=== PATIENT | male | born 1945 | race Caucasian/White ===

== ENCOUNTER 2020-07-07 12:11 | Emergency (ER) | payer MEDICARE ==
[~2020-07-07] VITALS: Ht 167.6 cm; Wt 67.1 kg
[2020-07-07] MEDS ORDERED: SODIUM CHLORIDE 0.9% 1000ML 1,000 ML IV STA (12:26)
[2020-07-07] MEDS ORDERED: SODIUM CHLORIDE 0.9% 1000ML 1,000 ML ONE (12:38)
[2020-07-07 12:53] LABS: BASOPHILS % 0.5 % (0.0-1.0); EOSINOPHILS # (AUTO) 0.1 (0.0-0.4); EOSINOPHILS % 0.8 % (0.0-6.0); HEMATOCRIT 45.9 % (38.2-49.6); HEMOGLOBIN 15.1 g/dL (14.0-18.0); LYMPHOCYTES # (AUTO) 2.5 (1.0-3.2); LYMPHOCYTES % 28.2 % (18.0-39.1); MEAN CORPUSCULAR HEMOGLOBIN 28.2 pg (28-32); MEAN CORPUSCULAR HGB CONC 32.9 g/dL (31-35); MEAN CORPUSCULAR VOLUME 85.8 fL (81-99); MONOCYTES # (AUTO) 0.9 (0.2-0.8); MONOCYTES % 10.1 % (4.4-11.3); NEUTROPHILS # (AUTO) 5.3 (2.1-6.9); NEUTROPHILS % 59.8 % (38.7-80.0); PLATELET COUNT 225 x10e3/uL (140-360); RED BLOOD COUNT 5.35 x10e6/uL (4.3-5.7); RED CELL DISTRIBUTION WIDTH 13.1 % (11.7-14.4)
[2020-07-07 13:03] LABS: INR 0.87; PROTHROMBIN TIME 12.3 seconds (11.9-14.5)
[2020-07-07 13:04] LABS: PARTIAL THROMBOPLASTIN TIME 27.2 seconds (23.8-35.5)
[2020-07-07 13:13] LABS: ALANINE AMINOTRANSFERASE 20 IU/L (0-55); ALBUMIN 3.7 g/dL (3.5-5.0); ALBUMIN/GLOBULIN RATIO 1.1 (0.8-2.0); ALKALINE PHOSPHATASE 103 IU/L (40-150); ANION GAP 15.3 mmol/L (8-16); BLOOD UREA NITROGEN 12 mg/dL (7-26); BUN/CREATININE RATIO 10 (6-25); CARBON DIOXIDE 20 mmol/L (22-29); CHLORIDE 106 mmol/L (98-107); CREATININE, SERUM 1.17 mg/dL (0.72-1.25); EST GLOMERULAR FILTRATION RATE > 60 ML/MIN (60-); GLUCOSE 103 mg/dL (74-118); POTASSIUM 4.3 mmol/L (3.5-5.1); SODIUM 137 mmol/L (136-145)
[2020-07-07] MEDS ORDERED: IOPAMIDOL 370 MG/ML 200 ML INFUS..BTL INJ ONE (13:22)
[2020-07-07] MEDS ORDERED: SODIUM CHLORIDE 0.9% 250ML 250 ML ONE (13:22)
[2020-07-07 14:30] LABS: BILIRUBIN,URINE NEGATIVE (NEGATIVE); COLOR,URINE YELLOW (YELLOW); KETONES,URINE NEGATIVE (NEGATIVE); LEUKOCYTE ESTERASE ,URINE NEGATIVE (NEGATIVE); NITRITE,URINE NEGATIVE (NEGATIVE); PROTEIN,URINE DIPSTICK NEGATIVE (NEGATIVE); URINE UROBILINOGEN 0.2 mg/dL (0.2 - 1)
[2020-07-07 14:31] LABS: CLARITY,URINE HAZY (CLEAR)
[2020-07-07 14:46] LABS: BACTERIA,URINE MODERATE /HPF; EPITHELIAL CELLS,URINE FEW /LPF; RBC,URINE >50 /HPF (0-5); WBC,URINE (MAN) 0-5 /HPF (0-5)
[2020-07-07 14:47] LABS: MUCUS,URINE FEW (RARE)
--- NOTE | 2020-07-07 14:58 | Diagnostic Imaging Report ---
EXAM: CT Abdomen and Pelvis WITHOUT and WITH contrast INDICATION: Gross hematuria. Flank pain. COMPARISON: None. TECHNIQUE: Abdomen and pelvis were scanned utilizing a multidetector helical scanner from the lung base to the pubic symphysis before and after administration of IV contrast. Coronal and sagittal reformations were obtained. Hematuria (CT Urogram) protocol was performed. Scan was performed pre- in supine position and nephrogenic/excretory phase with a 10 minute split bolus in prone position. IV CONTRAST: 150 mL Isovue-370 ORAL CONTRAST: Water COMPLICATIONS: None RADIATION DOSE: Total DLP: 571.51 mGy*cm Estimated effective dose: (DLP x 0.015 x size factor) mSv CTDIvol has been reviewed. It is below the limits set by the Radiation Protocol Committee (RPC). FINDINGS: LINES and TUBES: None. LOWER THORAX: Bibasilar calcified pleural plaques. Calcified granuloma in the right lung base posteriorly. 2 mm posterior right base nodule on image 14 series 3. HEPATOBILIARY: No focal hepatic lesions. No biliary ductal dilation. GALLBLADDER: No radio-opaque stones or sludge. No wall thickening. SPLEEN: No splenomegaly. PANCREAS: No focal masses or ductal dilatation. ADRENALS: Mild diffuse thickening of the adrenal glands bilaterally may reflect mild hyperplasia. KIDNEYS/URETERS: Kidneys: Normal appearance bilaterally. No hydronephrosis or perinephric stranding. Cyst: None. Mass: There are several bilateral small renal cysts, the largest in the posterior interpolar region of the left kidney measuring 1.5 cm; some demonstrate above than water attenuation, suggesting mild complexity. Stones: 6.5 mm calculus in the upper pole of the right kidney on image 55. Upper collecting systems: No irregularities or filling defects. Ureters: The ureters are nearly fully opacified and normal in appearance. The distal right ureter is opacified, likely due to post thousand without gross abnormality identified. There is mild diffuse dilatation of the left ureter with a 1.5 cm calculus either within the left ureter or just lateral to it just proximal to the left UVJ on image 142 series 6. Bladder: No mass or filling defects. GI TRACT: No abnormal distention, wall thickening, or evidence of bowel obstruction. There are diverticula within the colon without evidence of diverticulitis. Appendix is normal. PELVIC ORGANS/BLADDER: The prostate is enlarged measuring 6.0 x 4.6 cm in transverse and AP dimensions on image 150. The urinary bladder is unremarkable. Multiple phleboliths scattered throughout the pelvis. LYMPH NODES: No lymphadenopathy. VESSELS: Small infrarenal abdominal aortic aneurysm measuring 3.5 x 3.0 cm on image 85 series 6; it demonstrates a small volume of thrombus along its left lateral aspect. Ectasia of the left common iliac artery measuring 1.5 cm in maximal dimension. Moderate atherosclerotic calcifications throughout the aorta and iliac arteries including major branches PERITONEUM / RETROPERITONEUM: No free air or fluid. BONES: There are degenerative changes in the lumbar spine. Posterior disc osteophyte complex at L4-L5. SOFT TISSUES: Unremarkable. IMPRESSION: 1. 6.5 mm of nonobstructing calculus in the upper pole of the right kidney. 2. 1.5 mm calcific density abutting the distal left ureter appear exterior to it. No urothelial filling defects within the opacified ureter bilaterally. 3. Enlarged prostate. 4. 3.5 cm infrarenal abdominal aortic saccular aneurysm. 5. Diverticulosis coli without diverticulitis. Signed by: Dr. Zoe Bradford M.D. on 07/07/2020 2:55 PM
[2020-07-07] MEDS ORDERED: CEFTRIAXONE SOD 1 GM/NS 50 ML 50 ML IV ONE (15:00)
[2020-07-07 16:13] VITALS: BP 152/84
--- NOTE | 2020-07-07 17:17 | Emergency Department Note ---
History of Present Illnes History of Present Illness Chief Complaint: Genitourinary History of Present Illness This is a 74 year old male Patient complaining of hematuria that occured at 0700 today, patient denies any other urinary symptoms such as frequency, urgency or burning with urination. 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 Any updates have been documented here. Past Medical History Recent Fever: No Clinical Suspicion of Infectio: No New/Unexplained Change in Ment: No Past Medical History: Hypertension, Kidney Stones, Hyperlipedemia Other Surgery: back surgery Social History Smoking Cessation: Current some day smoker Counseling Performed: No Alcohol Use: None Any Illegal Drug Use: No TB Exposure/Symptoms: No Physically hurt or threatened: No Family History Family history of heart diseas: No Other Any Pre-Existing Lines (PICC,: No Review of Systems Review of Systems Constitutional: Reports no symptoms EENTM: Reports no symptoms Cardiovascular: Reports no symptoms Respiratory: Reports no symptoms Gastrointestinal: Reports no symptoms Genitourinary: Reports as per HPI, Reports hematuria Musculoskeletal: Reports no symptoms Integumentary: Reports no symptoms Neurological: Reports no symptoms Psychological: Reports no symptoms Endocrine: Reports no symptoms Hematological/Lymphatic: Reports no symptoms Physical Exam Related Data Allergies: Coded Allergies: No Known Allergies (Unverified , 07/07/20) Triage Vital Signs Vital Signs Date Time Temp Pulse Resp B/P (MAP) Pulse Ox O2 Delivery O2 Flow Rate FiO2 07/07/20 12:20 98.5 89 16 135/75 99 Room Air Vital signs reviewed: Yes Physical Exam CONSTITUTIONAL Constitutional: Present well-developed, Present well-nourished HENT HENT: Present normocephalic, Present atraumatic, Present oropharynx clear/moist, Present nose normal HENT L/R: Present left ext ear normal, Present right ext ear normal EYES Eyes: Reports PERRL, Reports conjunctivae normal NECK Neck: Present ROM normal PULMONARY Pulmonary: Present effort normal, Present breath sounds normal CARDIOVASCULAR Cardiovascular: Present regular rhythm, Present heart sounds normal, Present capillary refill normal, Present normal rate GASTROINTESTINAL Abdominal: Present soft, Present nontender, Present bowel sounds normal GENITOURINARY Genitourinary: Present exam deferred SKIN Skin: Present warm, Present dry MUSCULOSKELETAL Musculoskeletal: Present ROM normal NEUROLOGICAL Neurological: Present alert, Present oriented x 3, Present no gross motor or sensory deficits PSYCHOLOGICAL Psychological: Present mood/affect normal, Present judgement normal Results Laboratory Result Diagram: 07/07/20 1210 07/07/20 1210 Laboratory Laboratory Tests Test 07/07/20 14:20 07/07/20 12:10 Urine Color Yellow (YELLOW) Urine Clarity Hazy (CLEAR) Urine pH 7 (5 - 7) Urine Specific [place]rum 1.015 (1.010-1.025) Urine Protein Negative (NEGATIVE) Urine Glucose (UA) Negative (NEGATIVE) Urine Ketones Negative (NEGATIVE) Urine Blood 4+ (NEGATIVE) Urine Nitrite Negative (NEGATIVE) Urine Bilirubin Negative (NEGATIVE) Urine Urobilinogen 0.2 mg/dL (0.2 - 1) Urine Leukocyte Esterase Negative (NEGATIVE) Urine RBC >50 /HPF (0-5) Urine WBC 0-5 /HPF (0-5) Urine Epithelial Cells Few /LPF (NONE) Urine Bacteria Moderate /HPF (NONE) Urine Mucus Few (RARE) White Blood Count 8.80 x10e3/uL (4.8-10.8) Red Blood Count 5.35 x10e6/uL (4.3-5.7) Hemoglobin 15.1 g/dL (14.0-18.0) Hematocrit 45.9 % (38.2-49.6) Mean Corpuscular Volume 85.8 fL (81-99) Mean Corpuscular Hemoglobin 28.2 pg (28-32) Mean Corpuscular Hemoglobin Concent 32.9 g/dL (31-35) Red Cell Distribution Width 13.1 % (11.7-14.4) Platelet Count 225 x10e3/uL (140-360) Neutrophils (%) (Auto) 59.8 % (38.7-80.0) Lymphocytes (%) (Auto) 28.2 % (18.0-39.1) Monocytes (%) (Auto) 10.1 % (4.4-11.3) Eosinophils (%) (Auto) 0.8 % (0.0-6.0) Basophils (%) (Auto) 0.5 % (0.0-1.0) Neutrophils # (Auto) 5.3 (2.1-6.9) Lymphocytes # (Auto) 2.5 (1.0-3.2) Monocytes # (Auto) 0.9 (0.2-0.8) Eosinophils # (Auto) 0.1 (0.0-0.4) Basophils # (Auto) 0.0 (0.0-0.1) Absolute Immature Granulocyte (auto 0.05 x10e3/uL (0-0.1) Prothrombin Time 12.3 seconds (11.9-14.5) Prothromb Time International Ratio 0.87 Activated Partial Thromboplast Time 27.2 seconds (23.8-35.5) Sodium Level 137 mmol/L (136-145) Potassium Level 4.3 mmol/L (3.5-5.1) Chloride Level 106 mmol/L (98-107) Carbon Dioxide Level 20 mmol/L (22-29) Anion Gap 15.3 mmol/L (8-16) Blood Urea Nitrogen 12 mg/dL (7-26) Creatinine 1.17 mg/dL (0.72-1.25) Estimat Glomerular Filtration Rate > 60 ML/MIN (60-) BUN/Creatinine Ratio 10 (6-25) Glucose Level 103 mg/dL (74-118) Calcium Level 9.0 mg/dL (8.4-10.2) Total Bilirubin 0.7 mg/dL (0.2-1.2) Aspartate Amino Transf (AST/SGOT) 18 IU/L (5-34) Alanine Aminotransferase (ALT/SGPT) 20 IU/L (0-55) Alkaline Phosphatase 103 IU/L (40-150) Total Protein 7.1 g/dL (6.5-8.1) Albumin 3.7 g/dL (3.5-5.0) Globulin 3.4 g/dL (2.3-3.5) Albumin/Globulin Ratio 1.1 (0.8-2.0) Lab results reviewed: Yes Imaging Imaging results reviewed: Yes Assessment & Plan Medical Decision Making MDM PAINLESS HEMATURIA - CHECK CBC, CHEM, COAG'S, UA/CX, CT ABD/PEL W/WO - R/O UTI, BLABBER MASS, KIDNEY MASS, STONE Reassessment Reassessment DC HOME, OMNICEF, F/U DR GALVIN THURSDAY, RTED PRN SX'S WORSEN/INABILITY TO URINATE Assessment & Plan Final Impression: (1) Hematuria Depart Disposition: HOME, SELF-CARE Last Vital Signs Date Time Temp Pulse Resp B/P (MAP) Pulse Ox O2 Delivery O2 Flow Rate FiO2 07/07/20 16:13 73 16 99 07/07/20 14:22 151/76 Room Air 07/07/20 12:20 98.5 Medications in the ED Sodium Chloride 1,000 ml @ 0 mls/hr Q0M STAT IV Last administered on 07/07/20at 12:31; Admin Dose 999 MLS/HR; Start 07/07/20 at 12:26; Stop 07/07/20 at 12:27 Sodium Chloride 1,000 ml @ ud STK-MED ONCE .ROUTE ; Start 07/07/20 at 12:38; Stop 07/07/20 at 12:33; Status DC Iopamidol 74,000 mg STK-MED ONCE INJ ; Start 07/07/20 at 13:22; Stop 07/07/20 at 13:16; Status DC Sodium Chloride 250 ml @ ud STK-MED ONCE .ROUTE ; Start 07/07/20 at 13:22; Stop 07/07/20 at 13:16; Status DC Ceftriaxone Sodium 50 ml @ 100 mls/hr ONCE ONCE IV Last administered on 07/07/20at 16:05; Admin Dose 100 MLS/HR; Start 07/07/20 at 15:00; Stop 07/07/20 at 15:29 DAVON RICHARDSON MD Jul 07, 2020 17:17
== END 2020-07-07 17:34 | disposition home or self-care (01) ==
LOC: ER 12:21
DX: R31.9 Hematuria, unspecified (principal); I10 Essential (primary) hypertension; E78.5 Hyperlipidemia, unspecified; Z87.442 Personal history of urinary calculi; F17.210 Nicotine dependence, cigarettes, uncomplicated
CPT/HCPCS: 36415; 74178; 80053; 81001; 85025; 85610; 85730; 87086; 99284; J0696; J7030; J7050; Q9967

== ENCOUNTER 2021-01-16 12:44 | Emergency (ER) | payer SELFPAY ==
[~2021-01-16] VITALS: Ht 167.6 cm; Wt 67.1 kg
[2021-01-16 14:50] LABS: CLARITY,URINE TURBID (CLEAR); COLOR,URINE RED (YELLOW)
[2021-01-16 14:51] LABS: KETONES,URINE NEGATIVE (NEGATIVE); LEUKOCYTE ESTERASE ,URINE NEGATIVE (NEGATIVE); NITRITE,URINE NEGATIVE (NEGATIVE); PROTEIN,URINE DIPSTICK >=300 (NEGATIVE); URINE UROBILINOGEN 0.2 mg/dL (0.2 - 1)
[2021-01-16 14:52] LABS: RBC,URINE >50 /HPF (0-5); WBC,URINE (MAN) 0-5 /HPF (0-5)
[2021-01-16 14:53] LABS: BACTERIA,URINE RARE /HPF
[2021-01-16] MEDS ORDERED: SODIUM CHLORIDE 0.9% 50ML 0 ML ONE (18:27)
[2021-01-16] MEDS ORDERED: SODIUM CHLORIDE 0.9% 250ML 250 ML ONE (18:27)
[2021-01-16 18:29] LABS: BASOPHILS % 0.3 % (0.0-1.0); EOSINOPHILS % 0.2 % (0.0-6.0); HEMATOCRIT 50.9 % (38.2-49.6); HEMOGLOBIN 16.6 g/dL (14.0-18.0); LYMPHOCYTES % 12.7 % (18.0-39.1); MEAN CORPUSCULAR HEMOGLOBIN 28.3 pg (28-32); MEAN CORPUSCULAR HGB CONC 32.6 g/dL (31-35); MEAN CORPUSCULAR VOLUME 86.7 fL (81-99); MONOCYTES % 6.2 % (4.4-11.3); NEUTROPHILS # (AUTO) 12.3 (2.1-6.9); PLATELET COUNT 245 x10e3/uL (140-360); RED BLOOD COUNT 5.87 x10e6/uL (4.3-5.7); RED CELL DISTRIBUTION WIDTH 13.4 % (11.7-14.4)
[2021-01-16 18:31] LABS: INR 0.89; PARTIAL THROMBOPLASTIN TIME 28.9 seconds (23.8-35.5); PROTHROMBIN TIME 12.5 seconds (11.9-14.5)
[2021-01-16 18:44] LABS: ALBUMIN 4.2 g/dL (3.5-5.0); ALBUMIN/GLOBULIN RATIO 1.2 (0.8-2.0); ANION GAP 17.1 mmol/L (8-16); CALCIUM 9.8 mg/dL (8.4-10.2); CREATININE, SERUM 1.28 mg/dL (0.72-1.25); POTASSIUM 5.1 mmol/L (3.5-5.1)
[2021-01-16] MEDS ORDERED: SODIUM CHLORIDE 0.9% 500ML 500 ML IV ONE (19:00)
[2021-01-16] MEDS ORDERED: IOPAMIDOL 370 MG/ML 200 ML INFUS..BTL INJ ONE (19:09)
[2021-01-16] MEDS ORDERED: ACETAMINOPHEN 325 MG TAB PO ONE (19:45)
== END 2021-01-16 21:57 | disposition home or self-care (01) ==
LOC: ER 16:40
DX: R31.9 Hematuria, unspecified (principal); N20.0 Calculus of kidney; N40.0 Benign prostatic hyperplasia without lower urinary tract symptoms; K57.90 Diverticulosis of intestine, part unspecified, without perforation or abscess without bleeding; I71.4 Abdominal aortic aneurysm, without rupture
CPT/HCPCS: 36415; 74178; 80053; 81001; 85025; 85610; 85730; 87086; 99283; J7040; J7050; Q9967